=== PATIENT | male | born 1990 | race Caucasian/White ===

== ENCOUNTER 2017-06-16 14:50 | Emergency (ER) | payer OTHER ==
--- NOTE | 2017-06-16 15:31 | UC ---
Respiratory Complaint HPI - HPI Summary HPI Summary: 27 YO MALE HAS BEEN ILL FOR ONE WEEK INITIALLY FEVERISH/CHILLS/MALAISE ALONG WITH VERY MILD SORE THROAT LATER DEVELOPED A DAYS WORTH OF EXPLOSIVE DIARRHEA NOW WITH NAUSEA/VOMITING AND HEADACHE STATED HIS URINE IS DARK INTERMITTENT POORLY LOCALIZED ABD PAIN - History of Current Complaint Chief Complaint: UCGeneralIllness Stated Complaint: CHILLS,VOMITTING, DIZZY Time Seen by Provider: 06/16/17 15:27 Hx Obtained From: Patient Onset/Duration: Gradual Onset, Lasting Days Timing: Constant Severity Initially: Mild Severity Currently: Mild Pain Intensity: 4 Pain Scale Used: 0-10 Numeric Aggravating Factors: Nothing Associated Signs And Symptoms: Positive: Fever, Chills - Allergies/Home Medications Allergies/Adverse Reactions: Allergies Allergy/AdvReac Type Severity Reaction Status Date / Time Tree Nuts Allergy Intermediate Difficulty Verified 06/16/17 15:07 Swallowing CI Pigment Blue 63 Allergy Vomiting Verified 06/16/17 15:05 [From Tamiflu] Nystatin Allergy Rash Verified 06/16/17 15:05 Oseltamivir [From Tamiflu] Allergy Vomiting Verified 06/16/17 15:05 Home Medications: Home Medications NK [No Home Medications Reported] 06/16/17 [History Confirmed 06/16/17] PMH/Surg Hx/FS Hx/Imm Hx Previously Healthy: Yes - Surgical History Surgical History: None Surgery Procedure, Year, and Place: denies - Family History Known Family History: Positive: Hypertension - Social History Alcohol Use: Weekly Substance Use Type: None Smoking Status (MU): Never Smoked Tobacco Review of Systems Constitutional: Fever, Chills, Fatigue Skin: Negative Eyes: Negative ENT: Sore Throat Respiratory: Negative Cardiovascular: Negative Gastrointestinal: Abdominal Pain, Vomiting, Diarrhea, Nausea Genitourinary: Negative Motor: Negative Neurovascular: Negative Musculoskeletal: Negative Neurological: Negative Psychological: Negative Is Patient Immunocompromised?: No All Other Systems Reviewed And Are Negative: Yes Physical Exam Triage Information Reviewed: Yes Appearance: No Pain Distress, Ill-Appearing Vital Signs: Initial Vital Signs Temp 102.2 F 06/16/17 14:56 Pulse 101 06/16/17 14:56 Resp 18 06/16/17 14:56 BP 102/62 06/16/17 14:56 Pulse Ox 96 06/16/17 14:56 Vital Signs Reviewed: Yes Eyes: Positive: Conjunctiva Clear ENT: Positive: Hearing grossly normal, Pharyngeal erythema, Uvula midline, Other - DRY MUCOUS MEMBRANES. Negative: Nasal congestion, Nasal drainage, Tonsillar swelling, Tonsillar exudate, Trismus, Muffled voice, Hoarse voice Neck: Positive: Supple, Nontender, No Lymphadenopathy Respiratory: Positive: Lungs clear, Normal breath sounds, No respiratory distress, No accessory muscle use Cardiovascular: Positive: RRR, No Murmur Abdomen Description: Negative: Nontender - LLQ TENDERNESS AND SLIGHT RUQ TENDERNESS Musculoskeletal: Positive: ROM Intact, No Edema Neurological Exam: Normal Neurological: Positive: Alert Psychological Exam: Normal UC Diagnostic Evaluation - Laboratory O2 Sat by Pulse Oximetry: 96 - NORMAL/NOT HYPOXIC Re-Evaluation - Re-Evaluation First Eval Re-Evaluation Time: 16:47 Change: Improved Second Eval Re-Evaluation Time: 17:20 Change: Improved - NO NAUSEA/ABLE TO JUMP UP AND DOWN WITHOUT PAIN, MILD EPIGASTRIC AND RLQ TENDERNESS Respiratory Course/Dx - Course Course Of Treatment: STREP AND FLU (-). URINE DIP UNREMARKABLE. BETTER AFTER IV FLUIDS. DECLINES TRANSFER TO ED. HE WANTS TO SEE HOW HE DOES TONIGHT. STATES HE WILL GO TO ER TOMORROW IF NOT BETTER - Differential Dx/Diagnosis Provider Diagnoses: VIRAL SYNDROME Discharge - Discharge Plan Condition: Stable Disposition: HOME Patient Education Materials: Viral Syndrome (ED) Referrals: [facility] Glynn PEREYRA [Primary Care Provider] - 3 Days Additional Instructions: ZOFRAN ONE EVERY 6 HOURS NEEDED FOR NAUSEA RECHECK IN ER TOMORROW IF NOT MARKEDLY IMPROVED OR IF YOU ARE STILL FEBRILE ANY WORSENING SYMPTOMS ....ESPECIALLY ABDOMINAL PAIN ...GO TO THE ER
[2017-06-16] MEDS ORDERED: NS 0.9% 1000 ML* 1,000 ML BOLUS ONE (15:45)
[2017-06-16] MEDS ORDERED: Ondansetron INJ* 2 MG/ML VIAL IV ONE (15:45)
[2017-06-16 17:16] VITALS: BP 109/63
[2017-06-16] MEDS ORDERED: Ondansetron ODT TAB* 4 MG PO ONE (17:21)
[2017-06-17 14:02] LABS: EGFR Non-African American 121.3 (>60)
[2017-06-17 14:03] LABS: ABS Basophils 0 10^3/ul (0-0.2); ABS Eosinophils 0 10^3/ul (0-0.6); ABS Lymphocytes 0.8 10^3/ul (1.0-4.8); ABS Monocytes 0.5 10^3/ul (0-0.8); ABS Neutrophils 4.5 10^3/ul (1.5-7.7); ABS Nucleated RBC 0.06 10^3/ul; Eosinophil % 0.4 % (0-6); Hematocrit 47 % (42-52); Hemoglobin 16.3 g/dl (14.0-18.0); Lymphocyte % 13.2 % (25-47); Mean Corpuscular HGB Conc 34 g/dl (31-36); Mean Corpuscular Hemoglobin 30 pg (27-31); Mean Corpuscular Volume 88 fL (80-94); Red Blood Count 5.36 10^6/ul (4.0-5.4); Red Cell Distribution Width 12 % (10.5-15); White Blood Count 5.8 10^3/ul (3.5-10.8)
--- NOTE | 2017-06-17 18:02 | UC ---
- Progress Note Progress Note: no acute chnages to cbc/cmp Re-Evaluation - Re-Evaluation First Eval Re-Evaluation Time: 16:47 Change: Improved Second Eval Re-Evaluation Time: 17:20 Change: Improved - NO NAUSEA/ABLE TO JUMP UP AND DOWN WITHOUT PAIN, MILD EPIGASTRIC AND RLQ TENDERNESS Course/Dx - Course Course Of Treatment: STREP AND FLU (-). URINE DIP UNREMARKABLE. BETTER AFTER IV FLUIDS. DECLINES TRANSFER TO ED. HE WANTS TO SEE HOW HE DOES TONIGHT. STATES HE WILL GO TO ER TOMORROW IF NOT BETTER
== END 2017-06-16 18:10 | disposition home or self-care (01) ==
LOC: UCEAST 14:50
DX: B34.9 Viral infection, unspecified (principal); Z88.8 Allergy status to other drugs, medicaments and biological substances
CPT/HCPCS: 36415; 80053; 81003; 85025; 87502; 87651; 96360; 96374; 99212; A9270-GY; G0463; J2405

== ENCOUNTER → 2019-04-06 20:24 | Emergency (ER) | payer OTHER ==
[~2019-04-06 20:24] MED LIST: Acetaminophen TAB* 325 MG PO ONE; Ketorolac INJ* 30 MG/ML 1 ML VIAL IV PUSH ONE; NS 0.9% 1000 ML** 1,000 ML IV ONE; Ondansetron INJ* 2 MG/ML VIAL IV ONE
--- NOTE | 2019-04-06 21:12 | UC ---
General HPI - HPI Summary HPI Summary: Patient is 29 year old male, who present today to the urgent care with vomiting and diarrhea today. He reports that he ate sandwich with fries and some beer around 12:30 and started noticing chills and since then he has had 2 episodes of vomiting and diarrhea. No blood in his vomiting or in stool. He tried to take 2 cups of water and a slice of bread and throat again at about 8. states the headache is still with him Since then he has not been able to keep anything down and still feverish/ chills and some headache. Denies any recent sick contact or anybody with similar symptoms. Two other people ate with him at at lunchtime but they don't have any of the symptoms. He is from [place] and doing his PhD at [employer] and his parents were visiting. - History of Current Complaint Chief Complaint: UCGI Stated Complaint: VOMITING, AND DIARRHEA Time Seen by Provider: 04/06/19 20:58 Hx Obtained From: Patient Pain Intensity: 6 - Allergy/Home Medications Allergies/Adverse Reactions: Allergies Allergy/AdvReac Type Severity Reaction Status Date / Time Tree Nuts Allergy Intermediate Difficulty Verified 04/06/19 20:54 Swallowing nystatin Allergy Rash Verified 04/06/19 20:55 oseltamivir [From Tamiflu] Allergy Vomiting Verified 04/06/19 20:54 Home Medications: Home Medications Ibuprofen 200 mg PO SEE INSTRUCTIONS 04/06/19 [History] PMH/Surg Hx/FS Hx/Imm Hx - Additional Past Medical History Additional PMH: Past Medical History : None Past Surgical History: No Past History of Procedure Family History : non contributory Social History : Weekly alcohol, non smoker, no drug use. 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 Previously Healthy: Yes - Surgical History Surgical History: None Surgery Procedure, Year, and Place: denies - Family History Known Family History: Positive: Hypertension, Non-Contributory - Social History Alcohol Use: Weekly Substance Use Type: None Smoking Status (MU): Never Smoked Tobacco Review of Systems All Other Systems Reviewed And Are Negative: Yes Constitutional: Positive: Chills, Other - Subjective fevers Skin: Positive: Negative Eyes: Positive: Negative ENT: Positive: Negative Respiratory: Positive: Negative Cardiovascular: Positive: Negative Gastrointestinal: Positive: Vomiting, Diarrhea. Negative: Abdominal Pain Genitourinary: Positive: Negative Motor: Positive: Negative Neurovascular: Positive: Negative Musculoskeletal: Positive: Negative Neurological: Positive: Negative Psychological: Positive: Negative Is Patient Immunocompromised?: No Physical Exam - Summary Physical Exam Summary: Physical Exam: Const: Appears well. No signs of apparent distress present. Alert and oriented x 3. Musculo: Walks with a normal gait. Head/Face: Atraumatic, normocephalic on inspection. Eyes: EOMI and PERRLA in both eyes. Conjunctivae clear. No discharge noted ENT: Hearing normal, Respiratory: Respirations are unlabored. Lungs clear to auscultation bilaterally, no wheezing , rhonchi or rales noted . CVS: Regular rate and Rhythm, S1S2 normal , no murmurs identified. Extremities: Peripheral circulation is grossly normal. Pulses 2+ Abdomen : Soft , mild generalized tenderness, nondistended , Bowel sounds present . No guarding , rebound tenderness or rigidity noted. Skin: No lesions or rash located on the upper extremities or on the lower extremities. Neuro: GCS 15, Kernig and Brudzinski sign negative Cranial nerves II to XII intact, motor and sensory intact. DTR Intact bilaterally. Mood is normal. Affect is normal. Triage Information Reviewed: Yes Vital Signs: Initial Vital Signs Temp 99.4 F 04/06/19 20:45 Pulse 100 04/06/19 20:45 Resp 20 04/06/19 20:45 BP 82/47 04/06/19 20:45 Pulse Ox 98 04/06/19 20:45 Vital Signs Reviewed: Yes Course/Dx - Course Course Of Treatment: During the visit today, he was given 1 L normal saline and 1 IV Zofran 4 mg. Denied any improvement in his symptoms. Was able to sip some water. And he had a temperature of 102 Fahrenheit and he was given 30 mg of Toradol IV Repeat vitals 105/55 which was improved from before. We discussed the findings and further plan to send him to ER for definitive management. Patient needs additional testing, thus ER transfer advised and patient agrees. Report called to the ER provider, [facility], advised provider of the history, physical examination, and duration of illness and treatment so far and the need for definitive management. Patient was transferred to the ER via ambulance, vitals stable at the time of discharge He was able to urinate and urinalysis was done and ambulance arrived at the time - Diagnoses Provider Diagnosis: Gastroenteritis Discharge ED - Sign-Out/Discharge Documenting (check all that apply): Patient Departure All imaging exams completed and their final reports reviewed: No Studies - Discharge Plan Condition: Stable Disposition: TRANS HIGHER LVL OF CARE FAC Referrals: No Primary Care Phys,NOPCP [Primary Care Provider] - Additional Instructions: Sent to ER via ambulance - Billing Disposition and Condition Condition: STABLE Disposition: Trans Higher Lvl of Care Fac
[2019-04-06 22:02] VITALS: BP 105/55
== END | disposition short-term general hospital (02) ==
LOC: UCEAST 20:24
DX: K52.9 Noninfective gastroenteritis and colitis, unspecified (principal); Z91.018 Allergy to other foods; Z88.8 Allergy status to other drugs, medicaments and biological substances
CPT/HCPCS: J1885; J2405

== ENCOUNTER 2019-04-06 22:52 | Emergency (ER) | payer OTHER ==
[2019-04-06] MEDS ORDERED: NS 0.9% 1000 ML** 1,000 ML IV ONE (23:02)
[2019-04-06] MEDS ORDERED: Ketorolac INJ* 30 MG/ML 1 ML VIAL IV PUSH ONE (23:05)
--- NOTE | 2019-04-06 23:07 | ED ---
Headache - HPI Summary HPI Summary: This patient is a 29 year old M sent to ED from with a chief complaint of headache since 1230 today. Patient had lunch at 1200 today. He developed a headache at 1430 and then had chills. Patient vomited once afterwards. Patient then tried to drink water and eat bread but vomited again at 1930. He also reports having black soup diarrhea twice today. Patient reports fever. Patient denies nausea in the ED room. The patient rates the pain 0/10 in severity. Symptoms aggravated by nothing. Symptoms alleviated by nothing. - History Of Current Complaint Chief Complaint: EDHeadache Stated Complaint: VOMITING PER EMS Time Seen by Provider: 04/06/19 22:58 Hx Obtained From: Patient Onset/Duration: Gradual Onset, Started hours ago - 1430 today, Worse Since Currently Pain Is: Current Pain Scale(0-10)= - 0, Mild Aggravating Factor: Nothing Allevating Factors: Nothing Associated Signs And Symptoms: Negative - Nausea, Vomiting, Other (Noted In Comments) - Diarrhea, chills - Allergies/Home Medications Allergies/Adverse Reactions: Allergies Allergy/AdvReac Type Severity Reaction Status Date / Time Tree Nuts Allergy Intermediate Difficulty Verified 04/06/19 20:54 Swallowing nystatin Allergy Rash Verified 04/06/19 20:55 oseltamivir [From Tamiflu] Allergy Vomiting Verified 04/06/19 20:54 PMH/Surg Hx/FS Hx/Imm Hx Endocrine/Hematology History: Denies: Hx Diabetes, Hx Thyroid Disease Cardiovascular History: Denies: Hx Hypertension, Hx Pacemaker/ICD Respiratory History: Denies: Hx Asthma, Hx Chronic Obstructive Pulmonary Disease (COPD) GI History: Denies: Hx Ulcer History: Denies: Hx Renal Disease Sensory History: Denies: Hx Hearing Aid Psychiatric History: Denies: Hx Panic Disorder - Surgical History Surgery Procedure, Year, and Place: denies Infectious Disease History: No Infectious Disease History: Denies: Hx Clostridium Difficile, Hx Hepatitis, Hx Human Immunodeficiency Virus (HIV), Hx of Known/Suspected MRSA, Hx Shingles, Hx Tuberculosis, Hx Known/ Suspected VRE, Hx Known/Suspected VRSA, History Other Infectious Disease, Traveled Outside the [place] in Last 30 Days - Family History Known Family History: Positive: Hypertension - Social History Alcohol Use: Weekly Hx Substance Use: No Substance Use Type: Reports: None Hx Tobacco Use: No Smoking Status (MU): Never Smoked Tobacco Review of Systems Positive: Chills Positive: Vomiting, Diarrhea. Negative: Nausea Positive: Headache All Other Systems Reviewed And Are Negative: Yes Physical Exam - Summary Physical Exam Summary: Appearance: Well-appearing, Well-nourished, lying in bed comfortably Skin: Warm, dry, no obvious rash Eyes: sclera anicteric, no conjunctival pallor ENT: mucous membranes moist, pharynx appears normal Neck: Supple, nontender Respiratory: Clear to auscultation, no signs of respiratory distress Cardiovascular: Normal S1, S2. No murmurs. Normal distal pulses in tibial and radial bilaterally. Abdomen: Soft, nontender, normal active bowel sounds present Musculoskeletal: Normal, Strength/ROM Intact Neurological: A&Ox3, awake and alert, mentation is normal, speech is fluent and appropriate Psychiatric: affect is normal, does not appear anxious or depressed Triage Information Reviewed: Yes Vital Signs On Initial Exam: Initial Vitals Temp Pulse Resp BP Pulse Ox 100.9 F 83 18 103/48 99 04/06/19 22:57 04/06/19 22:57 04/06/19 22:57 04/06/19 22:57 04/06/19 22:57 Vital Signs Reviewed: Yes Procedures - Sedation Patient Received Moderate/Deep Sedation with Procedure: No Diagnostics - Vital Signs Vital Signs Temp Pulse Resp BP Pulse Ox 04/06/19 22:57 100.9 F 83 18 103/48 99 - Laboratory Result Diagrams: 04/06/19 23:26 04/06/19 23:26 Lab Statement: Any lab studies that have been ordered have been reviewed, and results considered in the medical decision making process. Re-Evaluation - Re-Evaluation First Eval Re-Evaluation Time: 01:15 Comment: Discussed results with patient. Patient will be discharged home with dx of acute nausea and vomiting. Patient understands and agrees with this plan. Headache Course/Dx - Course Course Of Treatment: This patient is a 29 year old M sent to ED from with a chief complaint of headache since 1230 today. In the ED course, patient received Toradol and fluids. Blood work revealed platelets 143, lymphocytes 0.3 , glucose 118, calcium 8.1, AST 11, CRP 10.58, total protein 5.8. Patient's blood pressure is noted to be on the low side, but on review of prior visits the patients blood pressure is typically low and he is currently not far from baseline. There are no signs of sepsis, tachycardia, etc. Discussed results with patient. Patient will be discharged home with dx of acute nausea and vomiting. Patient understands and agrees with this plan. - Diagnoses Provider Diagnoses: Nausea and vomiting Discharge ED - Sign-Out/Discharge Documenting (check all that apply): Patient Departure - Discharge - Discharge Plan Condition: Good Disposition: HOME Prescriptions: Ondansetron ODT TAB* [Zofran 4 MG Odt TAB*] 8 mg PO Q6H PRN #12 tab.odt PRN Reason: Nausea Patient Education Materials: Acute Nausea and Vomiting (ED) Referrals: [facility] [Outside] - Billing Disposition and Condition Condition: GOOD Disposition: Home - Attestation Statements Document Initiated by Karla: Yes Documenting Scribe: Chaim Sanchez Provider For Whom Karla is Documenting (Include Credential): Cj Ceballos MD Scribe Attestation: Chaim Hickey, scribed for Cj Ceballos MD on 04/07/19 at 0511. Scribe Documentation Reviewed: Yes Provider Attestation: The documentation as recorded by the Chaim patel accurately reflects the service I personally performed and the decisions made by me, Cj Ceballos MD Status of Scribsonia Document: Viewed
[2019-04-06 23:33] LABS: ABS Lymphocytes 0.3 10^3/ul (1.0-4.8); ABS Monocytes 0.3 10^3/ul (0-0.8); ABS Neutrophils 7.4 10^3/ul (1.5-7.7); Eosinophil % 0.1 %; Hematocrit 44 % (42-52); Hemoglobin 14.6 g/dL (14.0-18.0); Lymphocyte % 3.3 %; Mean Corpuscular HGB Conc 33 g/dL (31-36); Mean Corpuscular Hemoglobin 30 pg (27-31); Mean Corpuscular Volume 90 fL (80-94); Mean Platelet Volume 7.9 fL (7.4-10.4); Platelet Count 143 10^3/uL (150-450); Red Blood Count 4.84 10^6 /uL (4.18-5.48); Red Cell Distribution Width 13 % (10-15); White Blood Count 8.1 10^3/uL (3.5-10.8)
[2019-04-06 23:50] LABS: Albumin 3.6 g/dL (3.2-5.2); Albumin/Globulin Ratio 1.6 (1-3); C Reactive Protein 10.58 mg/L (<8.01); Calcium 8.1 mg/dL (8.6-10.3); EGFR African American 108.5 (>60); EGFR Non-African American 89.6 (>60); Globulin 2.2 g/dL (2-4); Total Bilirubin 0.7 mg/dL (0.2-1.0); Total Protein 5.8 g/dL (6.4-8.9)
[2019-04-07] MEDS ORDERED: NS 0.9% 1000 ML** 1,000 ML IV ONE (00:03)
[2019-04-07 00:34] LABS: HIV 4th Generation Nonreactive (Nonreactive)
[2019-04-07 01:43] VITALS: BP 95/48
[2019-04-07 02:31] LABS: Urine Appearance Clear; Urine Bacteria Absent (Absent); Urine Bilirubin Negative (Negative); Urine Blood Negative (Negative); Urine Color Yellow; Urine Glucose Negative (Negative); Urine Ketones 2+ (Negative); Urine Nitrite Negative (Negative); Urine Protein Negative (Negative); Urine Red Blood Cell Absent (Absent); Urine Specific Gravity 1.031 (1.010-1.030); Urine Squamous Epithelial Cell Present (Absent); Urine Urobilinogen Positive (Negative); Urine White Blood Cell Absent (Absent)
== END 2019-04-07 01:33 | disposition home or self-care (01) ==
LOC: ED 22:52
DX: R11.2 Nausea with vomiting, unspecified (principal); R51 Headache; R68.83 Chills (without fever)
CPT/HCPCS: 36415; 80053; 81003; 83605; 85025; 86140; 87389; 96361; 96374; 99282; J1885